=== PATIENT | female | born 1970 | race Caucasian/White ===

== ENCOUNTER 2017-12-06 11:45 | Emergency (ER) | END 2017-12-06 13:22 | disposition home or self-care (01) ==

== ENCOUNTER 2018-01-13 17:00 | Emergency (ER) | END 2018-01-13 20:55 | disposition home or self-care (01) ==

== ENCOUNTER 2018-03-10 15:43 | Emergency (ER) | END 2018-03-10 17:44 | disposition home or self-care (01) ==

== ENCOUNTER 2018-03-17 13:29 | Emergency (ER) | END 2018-03-17 17:30 | disposition home or self-care (01) ==

== ENCOUNTER 2018-03-22 09:45 | Emergency (ER) | END 2018-03-22 11:24 | disposition home or self-care (01) ==

== ENCOUNTER 2018-04-02 21:31 | Emergency (ER) | END 2018-04-03 00:50 | disposition home or self-care (01) ==

== ENCOUNTER → 2018-04-02 | Emergency (ER) | END | disposition home or self-care (01) ==

== ENCOUNTER 2018-04-23 15:16 | Emergency (ER) | END 2018-04-23 18:27 | disposition left against medical advice (07) ==

== ENCOUNTER 2018-06-01 22:46 | Emergency (ER) | END 2018-06-02 05:33 | disposition home or self-care (01) ==

== ENCOUNTER 2018-10-06 15:12 | Emergency (ER) | END 2018-10-07 10:20 ==

== ENCOUNTER 2019-01-10 21:33 | Emergency (ER) | payer OTHER ==
[~2019-01-10] VITALS: Ht 157.5 cm; Wt 75.0 kg
[~2019-01-10 21:33] MED LIST: ACET325T33 PO; ARIP5TAB14 PO; ATEN-51 PO; LAMO100T PO; TRAM50TA2 PO; TRAZ300T2 PO
[2019-01-10 21:41] VITALS: Ht 157.5 cm; Wt 75.0 kg
--- NOTE | 2019-01-10 22:35 | ERD ---
ER Documentation Chief Complaint Chief Complaint BIBA 81 vertigo/dizziness x 15 min; hx bipolar; a&ox3 HPI This is a 48-year-old female who presents for evaluation of vertigo and dizziness. Patient states that she had a brief episode where she felt very dizzy, and endorses some fatigue and tiredness. She she has a history of bipolar disorder, and she states that she was released from a hold yesterday. Currently she denies any suicidal or homicidal ideations, she has been depressed regarding arguments with her daughter. She states that she has been compliant with her medications. She denies any chest pain or shortness of breath. ROS All systems reviewed and are negative except as per history of present illness. Medications Home Meds Active Scripts Acetaminophen* (Tylenol*) 325 Mg Tablet, 2 TAB PO Q8 PRN for PAIN AND OR ELEVATED TEMP, #20 TAB Prov:CHITO PORTILLO MD 04/02/18 Tramadol HCl (Tramadol HCl) 50 Mg Tablet, 50 MG PO Q4 PRN for PAIN, #10 TAB Prov:OSMANY AGUILAR PA-C 01/13/18 Reported Medications Atenolol* (Atenolol*) 25 Mg Tablet, 25 MG PO DAILY, #30 TAB 10/07/18 Trazodone Hcl* (Desyrel*) 300 Mg Tablet, 300 MG PO QHS, #30 TAB 10/07/18 Lamotrigine* (Lamotrigine*) 100 Mg Tablet, 200 MG PO QAM, TAB 10/07/18 Aripiprazole* (Abilify*) 5 Mg Tab, 5 MG PO BID, #30 TAB 10/07/18 Allergies Allergies: Coded Allergies: NSAIDS (Non-Steroidal Anti-Inflamma (Unverified Allergy, Mild, 04/02/18) PMhx/Soc History of Surgery: Yes (Gastric Sleeve) Anesthesia Reaction: No Hx Neurological Disorder: No Hx Respiratory Disorders: No Hx Cardiac Disorders: Yes (HTN) Hx Psychiatric Problems: Yes (Bipolar D/O) Hx Miscellaneous Medical Probl: Yes (Torn R Meniscus) Hx Alcohol Use: Yes (ETOH) Hx Substance Use: No Hx Tobacco Use: No Smoking Status: Never smoker Physical Exam Vitals Vital Signs Date Temp Pulse Resp B/P (MAP) Pulse Ox O2 O2 Flow FiO2 Time Delivery Rate 01/10/19 94 18 111/71 21:41 (84) Physical Exam Const: No acute distress Head: Atraumatic Eyes: Normal Conjunctiva ENT: Normal External Ears, Nose and Mouth. Neck: Full range of motion. No meningismus. Resp: Clear to auscultation bilaterally Cardio: Regular rate and rhythm, no murmurs Abd: Soft, non tender, non distended. Normal bowel sounds Skin: No petechiae or rashes Back: No midline or flank tenderness Ext: No cyanosis, or edema Neur: Awake and alert Psych: Normal Mood and Affect Results 24 hrs Current Medications Medications Dose Sig/Valdo Start Time Status Last (Trade) Ordered Route PRN Stop Time Admin Dose Reason Admin Lorazepam 1 mg ONCE ONCE 01/10/19 DC 01/10/19 (Ativan) PO 23:00 22:53 01/10/19 23:01 Procedures/MDM EKG: Rate/Rhythm: Normal Sinus Rhythm QRS, ST, T-waves: RSR prime in V1, consistent with incomplete right bundle branch block. No changes consistent w/ acute ischemia Impression: No evidence of ischemia or arrhythmia Departure Condition: Stable CHET PAINTER MD Jan 10, 2019 22:35
[2019-01-10] MEDS ORDERED: LORAZEPAM 1 MG TAB PO ONE (23:00)
== END 2019-01-10 23:55 | disposition left against medical advice (07) ==
LOC: FTE 21:33
DX: R42 Dizziness and giddiness (principal); I10 Essential (primary) hypertension
CPT/HCPCS: 80048; 85025; 93005; Z7502; Z7610

== ENCOUNTER 2019-01-12 12:04 | Emergency (ER) | payer OTHER ==
[~2019-01-12] VITALS: Wt 100.0 kg
[2019-01-12 12:47] VITALS: BP 140/89; PULSE 89; RESP 18
[2019-01-12] MEDS ORDERED: ATEN-51 PO (13:32)
[2019-01-12] MEDS ORDERED: LAMO100T PO (13:32)
[2019-01-12] MEDS ORDERED: GABA300C16 PO (13:32)
--- NOTE | 2019-01-12 13:47 | ERD ---
ER Documentation Chief Complaint Chief Complaint leg pain HPI 48-year-old female brought in by ambulance from home after she was evicted complaining of bilateral lower extremity pain that has been going on for over 1 month. No alleviating factors. Exacerbated by walking. She states that it just aches, not cramping. Not sharp or burning. Pain is all throughout bilateral lower extremities. Pain is constant. Currently a 4 out of 10. No change in urination, no change in the color of urine, fevers, chills, or any other associated symptoms. Per EMS, the patient was drinking alcohol when they picked her up. ROS All systems reviewed and are negative except as per history of present illness. Medications Home Meds Active Scripts Gabapentin* (Gabapentin*) 300 Mg Capsule, 300 MG PO BID, #30 CAP Prov:SAUNDRA SHABAZZ MD 01/12/19 Atenolol* (Atenolol*) 25 Mg Tablet, 25 MG PO DAILY, #15 TAB Prov:SAUNDRA SHABAZZ MD 01/12/19 Lamotrigine* (Lamotrigine*) 100 Mg Tablet, 200 MG PO QAM for 15 Days, TAB Prov:SAUNDRA SHABAZZ MD 01/12/19 Acetaminophen* (Tylenol*) 325 Mg Tablet, 2 TAB PO Q8 PRN for PAIN AND OR ELEVATED TEMP, #20 TAB Prov:CHITO PORTILLO MD 04/02/18 Tramadol HCl (Tramadol HCl) 50 Mg Tablet, 50 MG PO Q4 PRN for PAIN, #10 TAB Prov:OSMANY AGUILAR PA-C 01/13/18 Reported Medications Trazodone Hcl* (Desyrel*) 300 Mg Tablet, 300 MG PO QHS, #30 TAB 10/07/18 Aripiprazole* (Abilify*) 5 Mg Tab, 5 MG PO BID, #30 TAB 10/07/18 Allergies Allergies: Coded Allergies: NSAIDS (Non-Steroidal Anti-Inflamma (Unverified Allergy, Mild, 04/02/18) PMhx/Soc History of Surgery: Yes (Gastric Sleeve) Anesthesia Reaction: No Hx Neurological Disorder: No Hx Respiratory Disorders: No Hx Cardiac Disorders: Yes (HTN) Hx Psychiatric Problems: Yes (Bipolar D/O) Hx Miscellaneous Medical Probl: Yes (Torn R Meniscus) Hx Alcohol Use: Yes (ETOH) Hx Substance Use: No Hx Tobacco Use: No Smoking Status: Never smoker FmHx Family History: No diabetes Physical Exam Vitals Vital Signs Date Temp Pulse Resp B/P (MAP) Pulse Ox O2 O2 Flow FiO2 Time Delivery Rate 01/12/19 98.1 89 18 140/89 99 12:47 (106) Physical Exam Const: No acute distress, appears intoxicated Head: Atraumatic Eyes: Normal Conjunctiva ENT: Normal External Ears, Nose and Mouth. Neck: Full range of motion. No meningismus. Resp: Clear to auscultation bilaterally Cardio: Regular rate and rhythm, no murmurs Abd: Soft, nondistended Skin: No petechiae or rashes Back: No midline or flank tenderness Ext: No cyanosis, or edema. No calf tenderness. No significant muscle tenderness in bilateral lower extremities. 2+ DP and PT pulses bilaterally. No joint swelling. Full range of motion at all joints. Neur: Awake and alert, Oriented, normal speech, no facial asymmetry, moving all extremities, 5 out of 5 strength in bilateral upper and lower extremities. Sensations intact. Normal steady gait Psych: Normal Mood and Affect Procedures/MDM Patient is presenting with chronic bilateral lower extremity pain. She is neurovascularly intact on exam. Vitals are stable. She is asking for refills of her medications as she lost her purse. I agreed to give her a medication refill to last her 2 weeks for atenolol, gabapentin, and lamotrigine. I gave her a list of clinics so she can follow-up outpatient for any further refills. Patient's blood pressure was elevated (>120/80) but appears stable without evidence of hypertension emergency or urgency. The patient was counseled about the risks of hypertension and urged to pursue outpatient monitoring and therapy within a week with their primary care physician. Departure Diagnosis: Primary Impression: Bilateral lower extremity pain Additional Impressions: Medication refill Acute alcohol intoxication Complication of substance-induced condition: uncomplicated Qualified Codes: F10.920 - Alcohol use, unspecified with intoxication, uncomplicated Condition: Stable Patient Instructions: Myalgias Referrals: COMMUNITY CLINICS YOU HAVE RECEIVED A MEDICAL SCREENING EXAM AND THE RESULTS INDICATE THAT YOU DO NOT HAVE A CONDITION THAT REQUIRES URGENT TREATMENT IN THE EMERGENCY DEPARTMENT. FURTHER EVALUATION AND TREATMENT OF YOUR CONDITION CAN WAIT UNTIL YOU ARE SEEN IN YOUR DOCTORS OFFICE WITHIN THE NEXT 1-2 DAYS. IT IS YOUR RESPONSIBILITY TO MAKE AN APPOINTMENT FOR FOLOW-UP CARE. IF YOU HAVE A PRIMARY DOCTOR --you should call your primary doctor and schedule an appointment IF YOU DO NOT HAVE A PRIMARY DOCTOR YOU CAN CALL OUR PHYSICIAN REFERRAL HOTLINE AT IF YOU CAN NOT AFFORD TO SEE A PHYSICIAN YOU CAN CHOSE FROM THE FOLLOWING [facility] [address] [facility] [address] [facility] [address] [facility] [address] [facility]. [facility] [address] [facility]. [facility] [address] Additional Instructions: Make an appointment for follow-up with primary care physician for any further refills. SAUNDRA SHABAZZ MD Jan 12, 2019 13:44
== END 2019-01-12 16:07 | disposition left against medical advice (07) ==
LOC: E/R 12:04
DX: M79.661 Pain in right lower leg (principal); M79.662 Pain in left lower leg; F10.920 Alcohol use, unspecified with intoxication, uncomplicated; I10 Essential (primary) hypertension; R40.2142 Coma scale, eyes open, spontaneous, at arrival to emergency department; R40.2252 Coma scale, best verbal response, oriented, at arrival to emergency department; R40.2362 Coma scale, best motor response, obeys commands, at arrival to emergency department; Z76.0 Encounter for issue of repeat prescription
CPT/HCPCS: 99283

== ENCOUNTER 2019-04-12 11:24 | Emergency (ER) | payer OTHER ==
[~2019-04-12] VITALS: Ht 165.1 cm; Wt 90.0 kg
[~2019-04-12 11:24] MED LIST changes: +GABA300C16 PO
[2019-04-12 11:33] VITALS: Ht 165.1 cm; Wt 90.0 kg
--- NOTE | 2019-04-12 11:35 | ERD ---
ER Documentation Chief Complaint Chief Complaint Headache HPI The patient is a 49-year-old female, presenting to the ER because of headache after she had a mechanical fall 2 days ago, when she was seen at [place] emergency department and had a forehead laceration repair. The headache is not getting better, she did not have a brain CT. denies syncope, near syncope, neck pain, chest pain, dyspnea, abdominal pain, vomiting, dysuria, diarrhea. She smokes and drinks, denies illicit drug Past medical history: Hypertension, bipolar Past surgical history: None ROS All systems reviewed and are negative except as per history of present illness. Medications Home Meds Active Scripts Acetaminophen* (Tylenol*) 325 Mg Tablet, 2 TAB PO Q6 PRN for PAIN AND OR ELEVATED TEMP, #20 TAB Prov:LUIS ANTONIO MENCHACA MD 04/12/19 Reported Medications Atenolol* (Atenolol*) 25 Mg Tablet, 25 MG PO DAILY, #30 TAB 04/12/19 Lamotrigine* (Lamotrigine*) 200 Mg Tablet, 200 MG PO DAILY, TAB 04/12/19 Trazodone Hcl* (Trazodone Hcl*) 150 Mg Tablet, 150 MG PO QHS, #30 TAB 04/12/19 Discontinued Reported Medications Trazodone Hcl* (Desyrel*) 300 Mg Tablet, 300 MG PO QHS, #30 TAB 10/07/18 Aripiprazole* (Abilify*) 5 Mg Tab, 5 MG PO BID, #30 TAB 10/07/18 Discontinued Scripts Gabapentin* (Gabapentin*) 300 Mg Capsule, 300 MG PO BID, #30 CAP Prov:SAUNDRA SHABAZZ MD 01/12/19 Atenolol* (Atenolol*) 25 Mg Tablet, 25 MG PO DAILY, #15 TAB Prov:SAUNDRA SHABAZZ MD 01/12/19 Lamotrigine* (Lamotrigine*) 100 Mg Tablet, 200 MG PO QAM for 15 Days, TAB Prov:SAUNDRA SHABAZZ MD 01/12/19 Acetaminophen* (Tylenol*) 325 Mg Tablet, 2 TAB PO Q8 PRN for PAIN AND OR ELEVATED TEMP, #20 TAB Prov:CHITO PORTILLO MD 04/02/18 Tramadol HCl (Tramadol HCl) 50 Mg Tablet, 50 MG PO Q4 PRN for PAIN, #10 TAB Prov:OSMANY AGUILAR PA-C 01/13/18 Allergies Allergies: Coded Allergies: NSAIDS (Non-Steroidal Anti-Inflamma (Unverified Allergy, Mild, 04/12/19) PMhx/Soc History of Surgery: Yes (Gastric Sleeve) Anesthesia Reaction: No Hx Neurological Disorder: No Hx Respiratory Disorders: No Hx Cardiac Disorders: Yes (HTN) Hx Psychiatric Problems: Yes (Bipolar D/O) Hx Miscellaneous Medical Probl: Yes (Torn R Meniscus) Hx Alcohol Use: Yes (ETOH) Hx Substance Use: No Hx Tobacco Use: No Physical Exam Vitals Vital Signs Date Temp Pulse Resp B/P (MAP) Pulse Ox O2 O2 Flow FiO2 Time Delivery Rate 04/12/19 80 16 113/63 95 Room Air 11:51 (80) 04/12/19 98.7 96 16 114/60 96 11:33 (78) Physical Exam Const: No acute distress. Head: Forehead laceration is healing well, no erythema, no discharge Eyes: Normal Conjunctiva. ENT: Normal External Ears, Nose and Mouth. Neck: Full range of motion. No meningismus. Resp: Clear to auscultation bilaterally. Cardio: Regular rate and rhythm. Abd: Soft, non distended, normal bowel sounds, non tender. Skin: No petechiae or rashes. Back: No midline or flank tenderness. Ext: No cyanosis, or edema. Neur: Awake and alert. No focal deficit Psych: Anxious Results 24 hrs Current Medications Medications Dose Sig/Valdo Start Time Status Last (Trade) Ordered Route PRN Stop Time Admin Dose Reason Admin 650 mg ONCE ONCE 04/12/19 UNV Acetaminophen PO 14:00 04/12/19 (Tylenol 14:01 Tab) Procedures/[place] [address] Radiology Main Line: [phone] DIAGNOSTIC IMAGING REPORT Patient: PERLA CHEN : 1970 Age: 49 Sex: F MR #: [id number] DOS: 04/12/19 1140 Ordering MD: LUIS ANTONIO MENCHACA MD Location: E/R Room/Bed: PROCEDURE: CT Brain without contrast. CLINICAL INDICATION: Headache TECHNIQUE: A CT of the brain was performed on a GE LightSpeed 64-slice CT scanner utilizing axial imaging from the skull base through the vertex without IV contrast. Multiplanar reformatted images were made. Images were reviewed on a PACS workstation. The CTDIvol is 48.11 mGy and the DLP is 851.11 mGycm. One or more the following dose reduction techniques were utilized: Automated exposure control, adjustment of mA/ or kV according to patient's size, or use of iterative reconstruction technique. DICOM images are available for review. COMPARISON: SD CT BRAIN 04/09/2019 FINDINGS: There is no intracranial hemorrhage, mass effect, or midline shift. The ventricles and sulci are normal in size and configuration. The density of the brain is normal. There is good felipe-white matter differentiation throughout the cerebral hemispheres. The visualized brainstem and cerebellum are unremarkable. No extra-axial fluid collection is seen. The visualized paranasal sinuses and osseous structures are grossly unremarkable. There is right frontal soft tissue swelling with subcutaneous emphysema. IMPRESSION: There is right frontal soft tissue swelling with subcutaneous emphysema however no underline fracture or intracranial abnormality is seen. The brain is normal in appearance. RPTAT: [facility] Physician Tyrone Date Time Electronically viewed and signed by Physician Tyrone on 04/12/2019 13:36 RL/ CC: LUIS ANTONIO MENCHACA MD [id number] MEDICAL MAKING DECISION: The patient is a 49-year-old female, presenting with acute cephalgia status post fall a few days ago. She was treated with Tylenol 650 mg p.o. for headache with good response, is stable for outpatient follow-up The differential diagnoses considered include but are not limited to subarachnoid hemorrhage, occult trauma, CVA, meningitis, encephalitis, hypertension, tension, migraine, cluster, narcotic withdrawal, cervical spine disease. Departure Diagnosis: Primary Impression: Cephalgia Condition: Good Comments She was discharged with acetaminophen I discussed the findings with the patient. I advised the patient to follow-up with the primary physician in about 1-2 days, sooner if needed and return if any concern. Disclaimer: Inadvertent spelling and grammatical errors are likely due to EHR/dictation software use and do not reflect on the overall quality of patient care. Also, please note that the electronic time recorded on this note does not necessarily reflect the actual time of the patient encounter. LUIS ANTONIO MENCHACA MD Apr 12, 2019 11:35
[2019-04-12] MEDS ORDERED: LAMO200T2 PO (12:00)
[2019-04-12] MEDS ORDERED: TRAZ150T65 PO (12:00)
[2019-04-12] MEDS ORDERED: ATEN-51 PO (12:01)
[2019-04-12] MEDS ORDERED: ACET325T33 PO (13:41)
[2019-04-12 13:48] VITALS: BP 116/82; PULSE 78; RESP 16
[2019-04-12] MEDS ORDERED: ACETAMINOPHEN 325 MG TAB PO ONE (14:00)
== END 2019-04-12 13:49 | disposition home or self-care (01) ==
LOC: E/R 11:24
DX: R51 Headache (principal); I10 Essential (primary) hypertension
CPT/HCPCS: 70450; Z7502; Z7610

== ENCOUNTER 2019-04-13 04:58 | Emergency (ER) | payer OTHER ==
[~2019-04-13] VITALS: Ht 167.6 cm; Wt 106.4 kg
[~2019-04-13 04:58] MED LIST changes: -ARIP5TAB14 PO; -GABA300C16 PO; -LAMO100T PO; +LAMO200T2 PO; -TRAM50TA2 PO; +TRAZ150T65 PO; -TRAZ300T2 PO
[2019-04-13 05:03] VITALS: Ht 167.6 cm; Wt 106.4 kg
[2019-04-13] MEDS ORDERED: SOD CHLORIDE 0.9% 1,000 ML IV STA (06:24)
[2019-04-13] MEDS ORDERED: THIAMINE 100 MG TAB PO ONE (06:30)
[2019-04-13] MEDS ORDERED: DEXTROSE 5%-0.45% NACL 500 ML BAG IV ONE (06:30)
[2019-04-13] MEDS ORDERED: DIAZEPAM 5 MG/ML SYG IV ONE (06:30)
[2019-04-13] MEDS ORDERED: FOLIC ACID 1 MG TAB PO ONE (06:30)
--- NOTE | 2019-04-13 07:25 | ERD ---
ER Documentation Chief Complaint Chief Complaint BIB RA,C/O WORSENING DIZZINESS,NUNBNESS TO ARMS,SEEN HERE FOR SAME THIS AM HPI This is a 49-year-old female presents to the emergency with multiple complaints. The patient has a history of alcohol abuse and has been drinking recently. Over the last several days had a fall with head injury and forehead laceration that was seen and treated in outside hospital with negative CT imaging. The patient has had now multiple visits complaining of headache numbness and tingling. The patient is describing bilateral upper extremity paresthesias with subjective weakness. Patient also feels tremulous, last drink was approximately 10 hours ago. She denies any hematemesis or melena. She states that she is homeless and looking to get into a rehab facility. She denies any significant headache. She is describing some difficulty concentrating. ROS All systems reviewed and are negative except as per history of present illness. Medications Home Meds Active Scripts Acetaminophen* (Tylenol*) 325 Mg Tablet, 2 TAB PO Q6 PRN for PAIN AND OR ELEVATED TEMP, #20 TAB Prov:LUIS ANTONIO MENCHACA MD 04/12/19 Reported Medications Atenolol* (Atenolol*) 25 Mg Tablet, 25 MG PO DAILY, #30 TAB 04/12/19 Lamotrigine* (Lamotrigine*) 200 Mg Tablet, 200 MG PO DAILY, TAB 04/12/19 Trazodone Hcl* (Trazodone Hcl*) 150 Mg Tablet, 150 MG PO QHS, #30 TAB 04/12/19 Discontinued Reported Medications Trazodone Hcl* (Desyrel*) 300 Mg Tablet, 300 MG PO QHS, #30 TAB 10/07/18 Aripiprazole* (Abilify*) 5 Mg Tab, 5 MG PO BID, #30 TAB 10/07/18 Discontinued Scripts Gabapentin* (Gabapentin*) 300 Mg Capsule, 300 MG PO BID, #30 CAP Prov:SAUNDRA SHABAZZ MD 01/12/19 Atenolol* (Atenolol*) 25 Mg Tablet, 25 MG PO DAILY, #15 TAB Prov:SAUNDRA SHABAZZ MD 01/12/19 Lamotrigine* (Lamotrigine*) 100 Mg Tablet, 200 MG PO QAM for 15 Days, TAB Prov:SAUNDRA SHABAZZ MD 01/12/19 Acetaminophen* (Tylenol*) 325 Mg Tablet, 2 TAB PO Q8 PRN for PAIN AND OR ELEVATED TEMP, #20 TAB Prov:CHITO PORTILLO MD 04/02/18 Tramadol HCl (Tramadol HCl) 50 Mg Tablet, 50 MG PO Q4 PRN for PAIN, #10 TAB Prov:OSMANY AGUILAR PA-C 01/13/18 Allergies Allergies: Coded Allergies: NSAIDS (Non-Steroidal Anti-Inflamma (Unverified Allergy, Mild, 04/13/19) PMhx/Soc History of Surgery: Yes (Gastric Sleeve) Anesthesia Reaction: No Hx Neurological Disorder: No Hx Respiratory Disorders: No Hx Cardiac Disorders: Yes (HTN) Hx Psychiatric Problems: Yes (Bipolar D/O) Hx Miscellaneous Medical Probl: Yes (Torn R Meniscus) Hx Alcohol Use: Yes (ETOH) Hx Substance Use: No Hx Tobacco Use: No Smoking Status: Never smoker FmHx Family History: No diabetes Physical Exam Vitals Vital Signs Date Temp Pulse Resp B/P (MAP) Pulse Ox O2 O2 Flow FiO2 Time Delivery Rate 04/13/19 98.4 86 16 130/80 100 Room Air 12:08 (97) 04/13/19 79 16 155/81 98 Room Air 10:00 (105) 04/13/19 92 16 159/77 98 Room Air 07:30 (104) 04/13/19 98.5 94 22 169/84 98 05:03 (112) Physical Exam General: Tremulous Head: Well-healing laceration of the right forehead Eyes: Pupils equally reactive, EOM intact ENT: Moist mucous membranes Neck: Supple, no lymphadenopathy Respiratory: Lungs clear bilaterally, no distress Cardiovascular: RRR, no murmurs, rubs, or gallops Abdominal: Soft, non-tender, non-distended, no peritoneal signs : Deferred MSK: Patient with intermittent weakness to the upper extremities that appears to be somewhat behavioral. Good flexion and extension at the elbow but slightly weak hand grasp strength again very intermittent. Neurologic: Patient with motor weakness as described above in the muscular skeletal section. Otherwise nonfocal exam. Normal speech. No focal deficits noted other than intermittent weakness above. Skin: No rash Psych: Normal mood Result Diagram: 04/13/19 0711 04/13/19 0711 Results 24 hrs Laboratory Tests Test 04/13/19 07:11 04/13/19 08:53 04/13/19 08:55 White Blood Count 6.6 10^3/ul Red Blood Count 3.76 10^6/ul Hemoglobin 10.0 g/dl Hematocrit 31.0 % Mean Corpuscular Volume 82.4 fl Mean Corpuscular Hemoglobin 26.6 pg Mean Corpuscular Hemoglobin Concent 32.3 g/dl Red Cell Distribution Width 17.6 % Platelet Count 259 10^3/UL Mean Platelet Volume 9.5 fl Immature Granulocytes % 0.200 % Neutrophils % 79.7 % Lymphocytes % 13.7 % Monocytes % 5.4 % Eosinophils % 0.2 % Basophils % 0.8 % Nucleated Red Blood Cells % 0.0 /100WBC Immature Granulocytes # 0.010 10^3/ul Neutrophils # 5.3 10^3/ul Lymphocytes # 0.9 10^3/ul Monocytes # 0.4 10^3/ul Eosinophils # 0.0 10^3/ul Basophils # 0.1 10^3/ul Nucleated Red Blood Cells # 0.0 10^3/ul Prothrombin Time 12.6 Sec Prothrombin Time Ratio 1.0 INR International Normalized Ratio 0.93 Activated Partial Thromboplast Time 29.6 Sec Sodium Level 138 mmol/L Potassium Level 3.5 mmol/L Chloride Level 101 mmol/L Carbon Dioxide Level 25 mmol/L Anion Gap 12 Blood Urea Nitrogen 8 mg/dl Creatinine 0.49 mg/dl Est Glomerular Filtrat Rate mL/min > 60 mL/min Glucose Level 92 mg/dl Calcium Level 8.0 mg/dl Total Bilirubin 0.8 mg/dl Direct Bilirubin 0.00 mg/dl Indirect Bilirubin 0.8 mg/dl Aspartate Amino Transf (AST/SGOT) 36 IU/L Alanine Aminotransferase (ALT/SGPT) 24 IU/L Alkaline Phosphatase 86 IU/L Total Protein 7.3 g/dl Albumin 3.9 g/dl Globulin 3.40 g/dl Albumin/Globulin Ratio 1.14 Lipase 156 U/L POC Beta HCG, Qualitative NEGATIVE Bedside Urine pH (LAB) 5.5 Bedside Urine Protein (LAB) Negative Bedside Urine Glucose (UA) Negative Bedside Urine Ketones (LAB) 2+ Bedside Urine Blood Negative Bedside Urine Nitrite (LAB) Negative Bedside Urine Leukocyte Esterase (L Negative Current Medications Medications Dose Sig/Valdo Start Time Status Last (Trade) Ordered Route PRN Stop Time Admin Dose Reason Admin Sodium 1,000 ml @ Q1H STAT 04/13/19 DC 04/13/19 Chloride 1,000 mls/hr IV 06:24 04/13/19 07:17 07:23 Thiamine 100 mg ONCE ONCE 04/13/19 DC 04/13/19 HCl PO 06:30 04/13/19 07:17 (Vitamin B1) 06:31 Folic Acid 1 mg ONCE ONCE 04/13/19 DC 04/13/19 (Folic Acid) PO 06:30 04/13/19 07:17 06:31 Diazepam 10 mg ONCE ONCE 04/13/19 DC 04/13/19 (Valium) IV 06:30 04/13/19 07:17 06:31 500 ml ONCE ONCE 04/13/19 DC 04/13/19 Dextrose/Sodi IV 06:30 04/13/19 07:17 um Chloride 06:31 (D5-1/2ns) Procedures/MDM EKG, MONITORS, & DIAGNOSTIC IMAGING: CT brain: No acute process per radiologist read MRI brain: No acute process per radiologist read MRI C-spine: no acute process per radiologist read LAB INTERPRETATION: I reviewed the laboratory testing and it shows no evidence of acute process MEDICAL DECISION MAKING: The patient has 2 issues. The first is what appears to be alcohol withdrawal syndrome. Patient has mild signs and symptoms consistent withdrawal and would benefit from multivitamins, fluids, dextrose as well as Valium. Patient does not likely require inpatient hospitalization as the symptoms are mild currently. The second issue is described paresthesias and difficulty concentrating. These are possibly secondary to issues with alcohol abuse, withdrawal syndrome. Howev er the patient also has a recent closed head injury. Consider possible postconcussive syndrome. However additionally given the patient's description of upper extremity weakness with a likely head extension injury this could be lead customer service representative of a subtle central cord syndrome. Given that the patient is high risk related to her alcohol abuse issues I do believe CT imaging of the brain as well as MRI imaging of the brain and C-spine will be most appropriate to rule out more serious etiology. If these are negative and the patient can see a marriage and family social worker and be placed to a rehab facility. ER COURSE: * Patient given IV fluids, dextrose solution, thiamine, folic acid, Valium. * The patient has improved symptomatology. Her diagnostic imaging shows no evidence of stroke, central cord syndrome or other acute process. * visitor services information assistant has seen the patient, homeless discharge process was initiat ed. * The patient is not a good candidate for outpatient benzodiazepines CONSULTATION: None DISPOSITION PLAN: The patient does not have an identifiable emergent medical condition that warrants inpatient hospitalization at this time. The patient is deemed safe for discharge with outpatient follow-up. We discussed follow up with the patient's primary care doctor within 24 to 48 hours as needed. We also discussed return to the emergency room for worsening symptoms or worsening condition. Outpatient referral: None required Discharge Medications: None required Departure Diagnosis: Primary Impression: Alcohol withdrawal Complication of substance-induced condition: uncomplicated Qualified Codes: F10.230 - Alcohol dependence with withdrawal, uncomplicated Additional Impressions: Paresthesia Post concussive syndrome Condition: Stable CINDY LUCERO MD Apr 13, 2019 07:25
[2019-04-13 16:16] VITALS: BP 159/90; PULSE 84; RESP 16
== END 2019-04-13 16:17 | disposition home or self-care (01) ==
LOC: E/R 04:58
DX: F10.230 Alcohol dependence with withdrawal, uncomplicated (principal); I10 Essential (primary) hypertension; R20.2 Paresthesia of skin; F07.81 Postconcussional syndrome; G44.309 Post-traumatic headache, unspecified, not intractable
CPT/HCPCS: 36415; 70450; 70551; 72141; 80053; 81003; 81025; 83690; 85025; 85610; 85730; 96374; 96375; J3360; J7030; Z7502; Z7610

== ENCOUNTER 2019-08-17 15:04 | Emergency (ER) | payer OTHER ==
[~2019-08-17] VITALS: Wt 90.0 kg
[~2019-08-17 15:04] MED LIST changes: +ACET500C5 PO; +ARIP10TA12 PO; +GABA300C16 PO; +LAMO200T3 PO; +OMEP20CA17 PO
[2019-08-17 15:07] VITALS: BP 169/68; PULSE 99; RESP 18
[2019-08-17] MEDS ORDERED: ACETAMINOPHEN 500 MG TAB PO STA (16:30)
== END 2019-08-17 17:48 | disposition left against medical advice (07) ==
LOC: FTE 15:04
DX: S99.912A Unspecified injury of left ankle, initial encounter (principal); I10 Essential (primary) hypertension; W18.39XA Other fall on same level, initial encounter; Y92.9 Unspecified place or not applicable
CPT/HCPCS: 73590; 73610; Z7502; Z7610